=== PATIENT | male | born 1970 | race Caucasian/White ===

== ENCOUNTER 2021-01-02 12:23 | Emergency (ER) | payer MEDICARE, OTHER ==
[2021-01-02 13:12] LABS: HEMOGLOBIN 16.6 gm/dl (14.0-17.5); RED BLOOD COUNT 5.06 M/UL (4.20-5.50); WHITE BLOOD COUNT 7.1 K/UL (4.5-11.0)
[2021-01-02 13:44] LABS: BUN/CREATININE RATIO 18 (0-10)
== END 2021-01-02 15:50 | disposition home or self-care (01) ==
LOC: ER1 12:23
PROVIDERS: Nurse Practitioner
DX: R07.9 Chest pain, unspecified (principal); I10 Essential (primary) hypertension; Z87.442 Personal history of urinary calculi; Z88.5 Allergy status to narcotic agent; Z88.1 Allergy status to other antibiotic agents
CPT/HCPCS: 71045; 80053; 82550; 82553; 83735; 83874; 84484; 85025; 93005; 99285